=== PATIENT | male | born 1965 | race Caucasian/White ===

== ENCOUNTER → 2024-01-29 07:34 | Outpatient (REF) | payer BC, SELFPAY ==
[2024-01-29 08:17] LABS: % Basophils 0.8 % (0-2); % Eosinophils 1.3 % (0-6); % Immature Granulocytes 0.2 % (0-0.5); % Lymphocytes 28.3 % (20.5-51.1); % Monocytes 8.7 % (1.7-9.3); % Neutrophils 60.7 % (42.2-75.2); Absolute Basophils 0.1 10^3/uL (0-0.2); Absolute Eosinophils 0.1 10^3/uL (0-0.7); Absolute Lymphocytes 1.7 10^3/uL (1.2-3.4); Absolute Monocytes 0.5 10^3/uL (0.1-0.6); Absolute Neutrophils 3.7 10^3/uL (1.4-6.5); Hematocrit 42.8 % (39.0-52.0); Hemoglobin 15.5 g/dL (13.0-18.0); Mean Corp Hgb Conc. 36.2 g/dL (33.0-37.0); Mean Corpuscular Hgb 30.5 pg (27.0-31.0); Mean Corpuscular Volume 84.1 fL (80.0-94.0); Mean Platelet Volume 10.8 fL (7.4-10.4); Nucleated Red Blood Cells % 0 % (-); Platelet Count 184 10^3/uL (130-400); Red Blood Cell Count 5.09 10^6/uL (4.70-6.10); Red Cell Dist. Width 12.1 % (11.5-14.5); White Blood Cell Count 6.1 10^3/uL (4.8-10.8)
[2024-01-29 08:48] LABS: Erythrocyte Sed Rate 11 mm/hour (0-20)
[2024-01-29 08:55] LABS: ALT (SGPT) 22 U/L (0-50); AST (SGOT) 26 U/L (17-59); Albumin 4.3 g/dl (3.5-5.0); Alkaline Phosphatase 83 U/L (38-126); Blood Urea Nitrogen 17 mg/dl (9-20); Calcium 9.6 mg/dl (8.4-10.2); Carbon Dioxide 22 mmol/L (22-30); Chloride 108 mmol/L (98-107); Glucose 95 mg/dl (70-99); Sodium 142 mmol/L (135-145); Total Bilirubin 1.3 mg/dl (0.2-1.3); Total Protein 7.3 g/dl (6.3-8.2); eGFR > 60.00
[2024-01-29 09:08] LABS: Total Iron Binding Capacity 285 ug/dl (261-462)
[2024-01-29 09:23] LABS: Hepatitis B Surface Antigen Negative (Negative)
[2024-01-29 09:41] LABS: Hepatitis B Core Ab, Total Negative (Negative)
[2024-01-29 10:39] LABS: Hepatitis B Surface Antibody Positive
[2024-01-29 16:06] LABS: Vitamin B12 255 pg/ml (239-931)
[2024-01-31 02:11] LABS: Vitamin D 1,25 Dihydroxy 54.8 pg/mL (19.9-79.3)
== END ==
LOC: REG 07:34
PROVIDERS: ATTENDING PHYSICIAN Specialist; FAMILY PHYSICIAN Family Medicine
DX: K50.80 Crohn's disease of both small and large intestine without complications (principal)
CPT/HCPCS: 36415; 80053; 82607; 82652; 82728; 83550; 85025; 85652; 86140; 86480; 86704; 86706; 87340

== ENCOUNTER → 2024-02-02 12:21 | Outpatient (REF) | payer BC, SELFPAY | LOC: REG 12:21 | PROVIDERS: ATTENDING PHYSICIAN Specialist; FAMILY PHYSICIAN Family Medicine | DX: K50.80 Crohn's disease of both small and large intestine without complications (principal) | CPT/HCPCS: 83993 ==

== ENCOUNTER → 2025-05-27 09:25 | Outpatient (REF) | payer OTHER, SELFPAY ==
[2025-05-27 09:59] LABS: Hematocrit 44.1 % (39.0-52.0); Hemoglobin 15.0 g/dL (13.0-18.0); Mean Corp Hgb Conc. 34.0 g/dL (33.0-37.0); Mean Corpuscular Volume 86.3 fL (80.0-94.0); Nucleated Red Blood Cells % 0 % (-); Platelet Count 219 10^3/uL (130-400); Red Cell Dist. Width 12.4 % (11.5-14.5)
[2025-05-27 10:17] LABS: ALT (SGPT) 37 U/L (0-50); AST (SGOT) 30 U/L (17-59); Albumin 4.4 g/dl (3.5-5.0); Alkaline Phosphatase 88 U/L (38-126); Blood Urea Nitrogen 15 mg/dl (9-20); Calcium 9.1 mg/dl (8.4-10.2); Carbon Dioxide 27 mmol/L (22-30); Chloride 107 mmol/L (98-107); Glucose 95 mg/dl (70-99); Iron 115 ug/dl (49-181); Potassium 4.2 mmol/L (3.5-5.1); Sodium 140 mmol/L (135-145); Total Protein 7.4 g/dl (6.3-8.2); eGFR > 60.00
[2025-05-27 10:21] LABS: C-Reactive Protein < 5.00 mg/L (0.0-10.00)
[2025-05-27 10:26] LABS: Total Iron Binding Capacity 291 ug/dl (261-462)
[2025-05-27 10:38] LABS: Vitamin D, 25-OH*** 25.7 ng/mL (30-80)
[2025-05-27 10:56] LABS: Ferritin 131.0 ng/ml (17.9-464.0)
[2025-05-27 11:11] LABS: Vitamin B12 914 pg/ml (239-931)
[2025-05-27 21:44] LABS: Hepatitis B Surface Antigen Negative (Negative)
== END ==
LOC: REG 09:25
PROVIDERS: ATTENDING PHYSICIAN Nurse Practitioner; FAMILY PHYSICIAN Family Medicine
DX: K50.80 Crohn's disease of both small and large intestine without complications (principal); E53.8 Deficiency of other specified B group vitamins
CPT/HCPCS: 36415; 80053; 82306; 82607; 82728; 83540; 83550; 83993; 85025; 85652; 86140; 86480; 86704; 86706; 87340